=== PATIENT | female | born 1955 | race Caucasian/White ===

== ENCOUNTER → 2017-03-20 | Outpatient (CLI) | payer OTHER ==
[~2017-03-20] MED LIST: BENAZEPRIL; DETROL; GLIPIZIDE10 MG/BOTT PO; GLYNASE; JANUVIA25 MG PO; LEVAQUIN750 MG PO; LEVEMIR100 UNITS/; LISINOPRIL10 MG PO; METFORMIN; METFORMIN HCL1000 M1 PO; MEVACOR; NOVOLOG FL100 UNIT/1; PRAVASTATIN SOD40 MG PO; TOPROL XL; TUSSIONEX PENN473 ML; ZITHROMAX
[2017-03-20 10:45] LABS: ALBUMIN SERUM 4.1 g/dL (3.5-5.0); BUN/CREATININE RATIO 21.25; CALCIUM SERUM 8.8 mg/dL (8.4-10.2); CREATININE SERUM 1.6 mg/dL (0.6-1.4); POTASSIUM 5.3 mmol/L (3.5-5.1); PROTEIN TOTAL SERUM 6.7 g/dL (6.0-8.3)
[2017-03-23 01:36] LABS: MICROALB UR (PNL) 0.3 mg/dL (***)
== END | disposition home or self-care (01) ==
LOC: CLAB 09:07
PROVIDERS: Internal Medicine Endocrinology, Diabetes & Metabolism
DX: E11.65 Type 2 diabetes mellitus with hyperglycemia (principal); E16.2 Hypoglycemia, unspecified
CPT/HCPCS: 36415; 80053; 80061; 82043; 82570; 83036

== ENCOUNTER → 2017-06-12 | Outpatient (CLI) | payer OTHER ==
[2017-06-12 11:15] LABS: ALBUMIN SERUM 4.1 g/dL (3.5-5.0); BILIRUBIN,TOTAL 0.9 mg/dL (0.2-2.0); CREATININE SERUM 1.6 mg/dL (0.6-1.4); POTASSIUM 5.1 mmol/L (3.5-5.1); PROTEIN TOTAL SERUM 6.8 g/dL (6.0-8.3); URIC ACID 7.2 mg/dL (2.6-7.2)
[2017-06-13 23:40] LABS: CALCIUM (PTHINTACT) 9.2 mg/dL (8.6-10.4)
== END | disposition home or self-care (01) ==
LOC: CLAB 09:23
PROVIDERS: Internal Medicine Nephrology
DX: N18.3 Chronic kidney disease, stage 3 (moderate) (principal); N25.81 Secondary hyperparathyroidism of renal origin
CPT/HCPCS: 36415; 80053; 82310; 83970; 84100; 84550

== ENCOUNTER → 2017-07-31 | Outpatient (CLI) | payer OTHER ==
[2017-07-31 10:32] LABS: BUN/CREATININE RATIO 18.57; CALCIUM SERUM 8.8 mg/dL (8.4-10.2); CREATININE SERUM 1.4 mg/dL (0.6-1.4); GLOM FILT RATE Estimated 39.6 mL/min (>60); POTASSIUM 4.5 mmol/L (3.5-5.1)
== END | disposition home or self-care (01) ==
LOC: CLAB 09:25
PROVIDERS: Internal Medicine Endocrinology, Diabetes & Metabolism
DX: E11.22 Type 2 diabetes mellitus with diabetic chronic kidney disease (principal); N18.3 Chronic kidney disease, stage 3 (moderate); E16.2 Hypoglycemia, unspecified
CPT/HCPCS: 36415; 80048; 83036

== ENCOUNTER → 2017-08-08 | Outpatient (CLI) | payer OTHER | END | disposition home or self-care (01) | LOC: CECH 12:25 | DX: I10 Essential (primary) hypertension (principal); R06.00 Dyspnea, unspecified; I51.89 Other ill-defined heart diseases | CPT/HCPCS: 93306 ==